=== PATIENT | male | born 1975 | race Caucasian/White ===

== ENCOUNTER 2024-07-04 22:08 | Emergency (ER) | payer OTHER ==
[~2024-07-04] VITALS: Ht 172.7 cm; Wt 95.3 kg
[2024-07-04] MEDS ORDERED: LOSARTAN POTASS50 M1 PO (22:46)
[2024-07-04] MEDS ORDERED: MIXED AMPHETAMI30 MG PO (22:46)
== END 2024-07-04 23:01 | disposition left against medical advice (07) ==
LOC: ED 22:08 → EDBD 22:14 → ED 23:01
DX: F10.139 Alcohol abuse with withdrawal, unspecified (principal); Z53.29 Procedure and treatment not carried out because of patient's decision for other reasons; I10 Essential (primary) hypertension; R10.11 Right upper quadrant pain; Y90.9 Presence of alcohol in blood, level not specified